=== PATIENT | male | born 1935 | race Caucasian/White ===

== ENCOUNTER 2021-01-15 08:40 | Emergency (ER) | payer MEDICARE, OTHER ==
[~2021-01-15] VITALS: Ht 180.3 cm; Wt 92.3 kg
[2021-01-15] MEDS ORDERED: COMB0.2S (08:56)
[2021-01-15] MEDS ORDERED: METO1TAB7 (08:56)
[2021-01-15] MEDS ORDERED: NATE120T4 (08:56)
[2021-01-15] MEDS ORDERED: BIMA01SOL (08:56)
[2021-01-15] MEDS ORDERED: SITA50TAB (08:56)
[2021-01-15] MEDS ORDERED: ATOR1TAB21 (08:56)
[2021-01-15] MEDS ORDERED: TIMO0.5S29 (08:56)
[2021-01-15] MEDS ORDERED: [UNRECOGNIZED DRUG - CODE] (08:56)
[2021-01-15] MEDS ORDERED: INSULANT (08:56)
[2021-01-15] MEDS ORDERED: ROPI3TAB3 (08:56)
[2021-01-15] MEDS ORDERED: LOSA100T5 (08:56)
[2021-01-15] MEDS ORDERED: OMEP-221 (08:56)
[2021-01-15] MEDS ORDERED: FINA5TAB2 (08:56)
[2021-01-15] MEDS ORDERED: AMLO1TAB25 (08:56)
[2021-01-15] MEDS ORDERED: FREETES (08:56)
[2021-01-15] MEDS ORDERED: LOTE5DRO3 (08:56)
[2021-01-15 09:28] LABS: HEMATOCRIT 36.2 % (42.0-52.0); HEMOGLOBIN 12.1 g/dl (13.5-17.5); MEAN CORPUSCULAR HEMOGLOBIN 35.2 pg (27.0-33.0); MEAN CORPUSCULAR HGB CONC 33.4 g/dl (32.0-36.5); MEAN CORPUSCULAR VOLUME 105.2 fl (80.0-96.0); PLATELET COUNT, AUTOMATED 295 10^3/uL (150-450); RED BLOOD COUNT 3.44 10^6/uL (4.30-6.10)
--- NOTE | 2021-01-15 09:44 | REP ---
INDICATION: llq pain intermittent ro stone COMPARISON: None TECHNIQUE: Axial noncontrast images from the lung bases to the pubic symphysis with coronal and sagittal reformations. This CT examination was performed using the following dose reduction techniques: Automated exposure control, adjustment of mA and/or kv according to the patient's size, and use of iterative reconstruction technique. 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 Visualized heart and pericardium normal. Liver, spleen, pancreas, and bilateral adrenal glands are normal. Cholelithiasis noted without acute cholecystitis. Kidneys demonstrate relatively symmetric moderate chronic perinephric stranding. A 1 mm nonobstructing right renal calculus is identified. There is no hydroureteronephrosis or obstructing ureteral calculi. The enteric system is unremarkable and without obstruction or acute inflammatory process. Normal terminal ileum and cecum identified in the right lower quadrant with findings to suggest prior appendectomy. Pelvis demonstrates enlarged prostate gland with mass effect on the base of the otherwise normal bladder. Atherosclerotic changes to the aorta and vasculature noted without aneurysm. No free air. No ascites. No intraperitoneal or retroperitoneal adenopathy. Musculoskeletal structures demonstrate age-related changes and old healed left rib fracture. IMPRESSION: No acute abdominopelvic pathology appreciated. Cholelithiasis. 1 mm nonobstructing right renal calculus. Mild prostatomegaly. No ascites, focal inflammatory stranding, free air or adenopathy. <Electronically signed by Julio Cesar Rai > 01/15/21 [id number]
[2021-01-15 09:48] LABS: ALBUMIN 3.8 GM/DL (3.2-5.2); BILIRUBIN,DIRECT 0.1 MG/DL (0.0-0.2); BILIRUBIN,TOTAL 0.4 MG/DL (0.2-1.0); TOTAL PROTEIN 7.7 GM/DL (6.4-8.2)
[2021-01-15] MEDS ORDERED: NS 500 ML IV ONE (10:05)
[2021-01-15 10:11] LABS: ATYPICAL LYMPH 1 % (0-5); BASOPHILS 2 % (0-1); EOSINOPHILS 2 % (0-3); LYMPHOCYTES 20 % (16-44); MONOCYTES 4 % (0-5); NEUTROPHILS 70 % (28-66)
[2021-01-15 10:14] LABS: PLATELET ESTIMATE NORMAL (NORMAL)
[2021-01-15] MEDS ORDERED: ISOVUE-370 76% 100ML VIAL As Ordered ONE (10:16)
--- NOTE | 2021-01-15 10:47 | REP ---
INDICATION: llq pqin. COMPARISON: Noncontrast study dated 01/15/2021 TECHNIQUE: Axial contrast-enhanced images from the lung bases to the pubic symphysis using 100 cc Isovue 370 intravenous contrast material. Coronal and sagittal reformations obtained. This CT examination was performed using the following dose reduction techniques: Automated exposure control, adjustment of mA and/or kv according to the patient's size, and the use of iterative reconstruction technique. FINDINGS: Liver demonstrates diffuse fatty infiltration without focal hepatic lesion. Cholelithiasis noted without acute cholecystitis. Spleen, pancreas, bilateral adrenal glands and kidneys are normal. The enteric system including stomach, small, and large bowel appears normal. No evidence for obstruction or acute inflammatory process. Normal terminal ileum and cecum are identified in the right lower quadrant with evidence for prior appendectomy. Pelvis demonstrates prostatomegaly with mass effect on base of the bladder. The bladder itself is otherwise normal in appearance. Descending through rectosigmoid colon appears normal. No ascites. No free air. No intraperitoneal or retroperitoneal adenopathy. Atherosclerotic changes to the aorta and vasculature noted without aneurysm or dissection. Musculoskeletal structures are intact and without acute osseous abnormality. IMPRESSION: No acute abdominopelvic pathology appreciated. Hepatosteatosis. Cholelithiasis. Prostatomegaly. <Electronically signed by Julio Cesar Rai > 01/15/21 [id number]
[2021-01-15 11:12] VITALS: BP 179/79
== END 2021-01-15 11:14 | disposition home or self-care (01) ==
LOC: M ED 08:40
DX: R10.9 Unspecified abdominal pain (principal); E11.65 Type 2 diabetes mellitus with hyperglycemia; I10 Essential (primary) hypertension; E78.9 Disorder of lipoprotein metabolism, unspecified; Z88.0 Allergy status to penicillin; Z79.899 Other long term (current) drug therapy; Z79.4 Long term (current) use of insulin
CPT/HCPCS: 36415; 74176; 74177; 80047; 80076; 81001; 82150; 83605; 83690; 85025; 87040; 93041; 99284; Q9967

== ENCOUNTER 2022-03-12 12:30 | Emergency (ER) | payer BC, MEDICARE, OTHER ==
[~2022-03-12] VITALS: Ht 180.3 cm; Wt 97.7 kg
[~2022-03-12 12:30] MED LIST: AMLO1TAB25; ATOR1TAB21; BIMA01SOL; COMB0.2S; FINA5TAB2; FREETES; INSULANT; LOSA100T5; LOTE5DRO3; METO1TAB7; NATE120T4; OMEP40CA5; ROPI3TAB3; SITA50TAB; TIMO0.5S29; [UNRECOGNIZED DRUG - CODE]
[2022-03-12] MEDS ORDERED: NORCO, ANEXSIA 5/325MG TABLET (HYDROcodone/ACETAMINOPHEN) PO ONE (13:35)
[2022-03-12 15:41] LABS: RSV AMPLIFICATION NEGATIVE (NEGATIVE)
[2022-03-12 15:55] VITALS: BP 160/80
== END 2022-03-12 16:00 | disposition short-term general hospital (02) ==
LOC: EDBD 12:30 → M ED 12:30
DX: S32.021A Stable burst fracture of second lumbar vertebra, initial encounter for closed fracture (principal); S32.019A Unspecified fracture of first lumbar vertebra, initial encounter for closed fracture; V93 Other injury due to accident on board watercraft, without accident to watercraft; J43.9 Emphysema, unspecified; E11.9 Type 2 diabetes mellitus without complications; I10 Essential (primary) hypertension; Z88.0 Allergy status to penicillin; Z79.4 Long term (current) use of insulin; Z79.899 Other long term (current) drug therapy

== ENCOUNTER 2022-03-15 16:14 | Observation (INO) | payer BC, MEDICARE ==
[~2022-03-15] VITALS: Ht 180.3 cm; Wt 91.5 kg
[~2022-03-15 16:14] MED LIST changes: -AMLO1TAB25; +AMLO1TAB25 PO; -FINA5TAB2; +FINA5TAB2 PO; -INSULANT; +INSULANT SC; -NATE120T4; +NATE120T4 PO; -OMEP40CA5; +OMEP40CA5 PO; -ROPI3TAB3; +ROPI3TAB3 PO; -SITA50TAB; +SITA50TAB PO
[2022-03-15] MEDS ORDERED: HYDR-3713 (16:21)
[2022-03-15] MEDS ORDERED: MORPHINE 2 MG/ML 1ML VIAL IV PRN ×2 (17:10→21:20)
[2022-03-15] MEDS ORDERED: ONDANSETRON 4MG 2ML VIAL IV ONE (17:10)
[2022-03-15 17:38] LABS: HEMATOCRIT 32.2 % (42.0-52.0); HEMOGLOBIN 10.8 g/dl (13.5-17.5); MEAN CORPUSCULAR HEMOGLOBIN 35.3 pg (27.0-33.0); MEAN CORPUSCULAR HGB CONC 33.5 g/dl (32.0-36.5); MEAN CORPUSCULAR VOLUME 105.2 fl (80.0-96.0); PLATELET COUNT, AUTOMATED 276 10^3/uL (150-450); RED BLOOD COUNT 3.06 10^6/uL (4.30-6.10); WHITE BLOOD COUNT 7.7 10^3/uL (4.0-10.0)
[2022-03-15 17:58] LABS: ATYPICAL LYMPH 1 % (0-5); BASOPHILS 1 % (0-1); EOSINOPHILS 1 % (0-3); LYMPHOCYTES 12 % (16-44); MONOCYTES 3 % (0-5); NEUTROPHILS 82 % (28-66)
[2022-03-15 17:59] LABS: PLATELET ESTIMATE NORMAL (NORMAL)
[2022-03-15 18:10] LABS: RSV AMPLIFICATION NEGATIVE (NEGATIVE)
[2022-03-15 18:12] LABS: CALCIUM LEVEL 9.8 MG/DL (8.8-10.2); CREATININE FOR GFR 1.85 MG/DL (0.70-1.30); GLOMERULAR FILTRATION RATE 37.2 (>35); POTASSIUM SERUM 4.5 MEQ/L (3.5-5.1)
[2022-03-15 18:13] LABS: ALBUMIN 3.9 GM/DL (3.2-5.2); BILIRUBIN,TOTAL 0.4 MG/DL (0.2-1.0); TOTAL PROTEIN 7.5 GM/DL (6.4-8.2)
[2022-03-15] MEDS ORDERED: HUMA100I5 SC (18:22)
[2022-03-15] MEDS ORDERED: FENO1CAP18 PO (18:22)
[2022-03-15] MEDS ORDERED: MINO100C4 PO (18:22)
[2022-03-15] MEDS ORDERED: ATOR40TA75 PO (18:22)
[2022-03-15] MEDS ORDERED: LOSA25TA13 PO (18:22)
[2022-03-15] MEDS ORDERED: HYDR-3911 PO (18:22)
[2022-03-15] MEDS ORDERED: GLUCOSE 4GM CHEW TABLET PO PRN (19:30)
[2022-03-15] MEDS ORDERED: GLUCAGON INJ 1MG VIAL SC PRN (19:30)
[2022-03-15] MEDS ORDERED: DEXTROSE 50% 50 ML SYRINGE IV PRN (19:30)
[2022-03-15] MEDS ORDERED: ASPI81TA26 PO (19:35)
[2022-03-15] MEDS ORDERED: PRESCAP PO (19:35)
[2022-03-15] MEDS ORDERED: FINE10TA PO (19:35)
[2022-03-15] MEDS ORDERED: B-12100010 PO (19:35)
[2022-03-15] MEDS ORDERED: VITA100093 PO (19:35)
[2022-03-15] MEDS ORDERED: HOME MED LIST COMPLETE! XX SCH (19:40)
[2022-03-15] MEDS: INSULIN LISPRO (NovoLOG) PER UNIT SC SCH (20:40)
[2022-03-15] MEDS ORDERED: LEVEMIR (INSULIN DETEMIR) 1 UNITS/0.01ML SC SCH (21:00)
[2022-03-15] MEDS: **hydrALAZINE** 50 MG TAB PO SCH (21:00)
[2022-03-15] MEDS: ATORVASTATIN 20 MG TAB PO SCH (21:55)
[2022-03-15] MEDS: GABAPENTIN 100 MG CAP PO SCH (21:55)
[2022-03-15] MEDS: LEVEMIR (INSULIN DETEMIR) 1 UNITS/0.01ML SC SCH (21:55)
[2022-03-15] MEDS: NORCO, ANEXSIA 5/325MG TABLET (HYDROcodone/ACETAMINOPHEN) PO PRN (21:56)
[2022-03-15] MEDS: LR 1,000 ML IV SCH (22:01)
[2022-03-16 00:45] VITALS: BP 167/69
[2022-03-16] MEDS: rOPINIRole 1MG TAB PO SCH ×2 (00:58→21:33)
[2022-03-16 05:56] LABS: HEMATOCRIT 30.4 % (42.0-52.0); HEMOGLOBIN 10.2 g/dl (13.5-17.5); MEAN CORPUSCULAR HEMOGLOBIN 35.3 pg (27.0-33.0); MEAN CORPUSCULAR HGB CONC 33.6 g/dl (32.0-36.5); MEAN CORPUSCULAR VOLUME 105.2 fl (80.0-96.0); PLATELET COUNT, AUTOMATED 264 10^3/uL (150-450); RED BLOOD COUNT 2.89 10^6/uL (4.30-6.10); WHITE BLOOD COUNT 6.1 10^3/uL (4.0-10.0)
[2022-03-16 06:00] VITALS: BP 161/66
[2022-03-16] MEDS: HEPARIN SOD (PORCINE) 5000UNITS/ML 1ML VIAL/SYRINGE SC SCH ×3 (06:39→21:32)
[2022-03-16 06:40] LABS: CALCIUM LEVEL 9.7 MG/DL (8.8-10.2); CREATININE FOR GFR 1.7 MG/DL (0.70-1.30); POTASSIUM SERUM 4.6 MEQ/L (3.5-5.1)
[2022-03-16] MEDS: NORCO, ANEXSIA 5/325MG TABLET (HYDROcodone/ACETAMINOPHEN) PO PRN ×2 (06:48→17:16)
[2022-03-16] MEDS ORDERED: SITagliptin 50 MG TAB (JANUVIA) PO SCH (09:00)
[2022-03-16] MEDS: GABAPENTIN 100 MG CAP PO SCH ×3 (09:30→21:31)
[2022-03-16] MEDS: INSULIN LISPRO (NovoLOG) PER UNIT SC SCH ×4 (09:30→21:00)
[2022-03-16] MEDS: OMEPRAZOLE 20MG CAP PO SCH (09:31)
[2022-03-16] MEDS: FINASTERIDE 5MG TAB PO SCH (09:31)
[2022-03-16] MEDS: LOSARTAN 25 MG TAB PO SCH (09:31)
[2022-03-16] MEDS: ASPIRIN 81MG ENTERIC TABLET PO SCH (09:31)
[2022-03-16] MEDS: **hydrALAZINE** 50 MG TAB PO SCH ×3 (09:32→21:33)
[2022-03-16] MEDS: LR 1,000 ML IV SCH (09:33)
[2022-03-16 10:30] LABS: FOLATE 8.8 NG/ML
[2022-03-16 14:00] VITALS: BP 134/53
[2022-03-16] MEDS: ACETAMINOPHEN 500 MG TAB PO SCH ×2 (14:34→21:32)
[2022-03-16] MEDS: NICOTINE 14 MG/24 HR TRANSDERMAL TD SCH (17:17)
[2022-03-16] MEDS ORDERED: LEVEMIR (INSULIN DETEMIR) 1 UNITS/0.01ML SC SCH (21:00)
[2022-03-16] MEDS: LEVEMIR (INSULIN DETEMIR) 1 UNITS/0.01ML SC SCH (21:31)
[2022-03-16] MEDS: ATORVASTATIN 20 MG TAB PO SCH (21:31)
[2022-03-16 21:33] VITALS: BP 137/49
[2022-03-16 22:00] VITALS: BP 137/49
[2022-03-16] MEDS ORDERED: NORCO, ANEXSIA 5/325MG TABLET (HYDROcodone/ACETAMINOPHEN) PO ONE (22:45)
[2022-03-16] MEDS ORDERED: NORCO, ANEXSIA 5/325MG TABLET (HYDROcodone/ACETAMINOPHEN) PO PRN (22:45)
[2022-03-17] MEDS: ACETAMINOPHEN 500 MG TAB PO SCH ×2 (05:49→13:31)
[2022-03-17] MEDS: HEPARIN SOD (PORCINE) 5000UNITS/ML 1ML VIAL/SYRINGE SC SCH ×2 (05:49→13:31)
[2022-03-17 05:58] VITALS: BP 146/62
[2022-03-17] MEDS: NICOTINE 14 MG/24 HR TRANSDERMAL TD SCH (09:24)
[2022-03-17] MEDS: INSULIN LISPRO (NovoLOG) PER UNIT SC SCH ×2 (09:24→13:31)
[2022-03-17] MEDS: OMEPRAZOLE 20MG CAP PO SCH (09:25)
[2022-03-17] MEDS: ASPIRIN 81MG ENTERIC TABLET PO SCH (09:25)
[2022-03-17] MEDS: GABAPENTIN 100 MG CAP PO SCH (09:25)
[2022-03-17] MEDS: FINASTERIDE 5MG TAB PO SCH (09:25)
[2022-03-17] MEDS: **hydrALAZINE** 50 MG TAB PO SCH (09:26)
[2022-03-17] MEDS: LOSARTAN 25 MG TAB PO SCH (09:26)
[2022-03-17] MEDS ORDERED: INSULANT SC (13:03)
[2022-03-17] MEDS ORDERED: GABA-282 PO (13:03)
== END 2022-03-17 14:50 | disposition home or self-care (01) ==
LOC: M ED 16:14 → INTOOBSV 16:15 → M ED INP 16:15 → UNDOADMIN 17:47 → M ED INP 17:47 → ENRESERV 22:37 → M MSPAV 03-16 00:45 → M ED INP 03-16 00:45 → UNDODISIN 03-17 14:50
PROVIDERS: ADMIT Internal Medicine; ATTEND Internal Medicine
DX: S32.022A Unstable burst fracture of second lumbar vertebra, initial encounter for closed fracture (principal); R52 Pain, unspecified; N18.9 Chronic kidney disease, unspecified; I12.9 Hypertensive chronic kidney disease with stage 1 through stage 4 chronic kidney disease, or unspecified chronic kidney disease; E11.21 Type 2 diabetes mellitus with diabetic nephropathy; K21.9 Gastro-esophageal reflux disease without esophagitis; N40.0 Benign prostatic hyperplasia without lower urinary tract symptoms; G25.81 Restless legs syndrome; E78.49 Other hyperlipidemia; Z87.891 Personal history of nicotine dependence; Z79.82 Long term (current) use of aspirin; Z79.899 Other long term (current) drug therapy; Z79.4 Long term (current) use of insulin; Z88.0 Allergy status to penicillin
CPT/HCPCS: 36415; 80048; 80053; 82607; 82746; 85025; 85027; 87631; 96361; 96372; 96374; 96375; 96376; 97110; 97162; 97165; 97530; 97535; 99285; J1644; J1815; J2270; J2405

== ENCOUNTER 2025-04-19 06:35 | Inpatient (IN) | payer MEDICARE ==
[~2025-04-19] VITALS: Ht 180.3 cm; Wt 89.9 kg
[~2025-04-19 06:35] MED LIST changes: +ASPI81TA26 PO; +ATOR40TA75 PO; +B-12100010 PO; +FENO1CAP18 PO; +FINE10TA PO; +GABA-1172 PO; +HUMA100I5 SC; +HYDR-3713; +HYDR50TA46 PO; +LOSA25TA13 PO; -LOTE5DRO3; +LOTE5DRO9; +MINO100C4 PO; +PRESCAP PO; +ROPI3TAB18 PO; -ROPI3TAB3 PO; +TIMO0.5S20; -TIMO0.5S29; +VITA100093 PO
[2025-04-19] MEDS ORDERED: LANTINJ4 SC (06:57)
[2025-04-19] MEDS ORDERED: CHLO125TA PO (07:00)
[2025-04-19] MEDS ORDERED: INSUHUMDS SC (07:00)
[2025-04-19] MEDS ORDERED: CLOP75TA2 PO (07:00)
[2025-04-19] MEDS ORDERED: VANCOMYCIN HCL 1,750 MG, VIAL MATE ADAPTER 1 EACH in NS 500 ML IV ONE ×2 (08:00→08:15)
[2025-04-19 08:14] LABS: PLATELET COUNT, AUTOMATED 293 10^3/uL (150-450)
[2025-04-19] MEDS ORDERED: metroNIDAZOLE 500 MG in IV 1 EA IV ONE ×2 (08:15→11:00)
[2025-04-19 08:17] LABS: INR 0.98
[2025-04-19 08:20] LABS: ERYTHROCYTE SEDIMENTATION RATE 12 mm/hr (0-20)
[2025-04-19 08:26] LABS: ALT/SGPT 20 U/L (7.0-40); AST/SGOT 20 U/L (<34); C REACTIVE PROTEIN QUANTITATIV < 0.50 MG/DL (<1.0); CALCIUM LEVEL 9.3 MG/DL (8.3-10.6); CARBON DIOXIDE LEVEL 25 MMOL/L (20-31); CHLORIDE LEVEL 104 MMOL/L (98-107); CREATININE FOR GFR 1.39 MG/DL (0.70-1.30); GLOMERULAR FILTRATION RATE 48.8 (>35); POTASSIUM SERUM 4.2 MMOL/L (3.5-5.1); SODIUM LEVEL 136 MMOL/L (136-145)
[2025-04-19] MEDS: CEFEPIME HCL 2 GM in DEXTROSE 5% (D5W) ADV/MINI-BAG 50 ML IV ONE (08:36)
[2025-04-19 08:39] LABS: ATYPICAL LYMPH 1 % (0-5); BASOPHILS 2 % (0-1); LYMPHOCYTES 17 % (16-44); MONOCYTES 2 % (0-5); NEUTROPHILS 78 % (28-66)
[2025-04-19 08:40] LABS: PLATELET CLUMPS SMALL AMT; PLATELET ESTIMATE NORMAL (NORMAL)
[2025-04-19] MEDS: NS (Normal Saline) 0.9% 1,000 ML IV ONE (09:23)
[2025-04-19] MEDS ORDERED: DEXTROSE 50% 50 ML SYRINGE IV PRN (09:45)
[2025-04-19] MEDS ORDERED: GLUCOSE 4 GM CHEW PO PRN (09:45)
[2025-04-19] MEDS ORDERED: MOM 30 ML SUSPENSION UDC PO PRN (09:45)
[2025-04-19] MEDS ORDERED: GLUCAGON INJ 1 MG VIAL SC PRN (09:45)
[2025-04-19] MEDS ORDERED: VANCOMYCIN HCL 1,000 MG, VIAL MATE ADAPTER 1 EACH in NS 250 ML IV SCH (09:45)
[2025-04-19] MEDS ORDERED: ACETAMINOPHEN 325 MG TAB PO PRN (09:45)
[2025-04-19] MEDS ORDERED: MAALOX 30 ML SUSP *UDC PO PRN (09:45)
[2025-04-19 09:47] LABS: ESTIMATED AVERAGE GLUCOSE 146.0 MG/DL (60-110)
[2025-04-19] MEDS: VANCOMYCIN HCL 1,750 MG, VIAL MATE ADAPTER 1 EACH in NS 500 ML IV ONE (10:45)
[2025-04-19 11:29] LABS: ESTIMATED AVERAGE GLUCOSE 148.0 MG/DL (60-110)
[2025-04-19 13:30] VITALS: BP 141/68; TEMP 97.7; O2SAT 96
[2025-04-19] MEDS ORDERED: PRESCAP PO (14:16)
[2025-04-19] MEDS ORDERED: HYDR100T PO (14:16)
[2025-04-19] MEDS ORDERED: ALLO10TA PO (14:22)
[2025-04-19] MEDS ORDERED: HOME MED LIST COMPLETE! XX SCH (14:25)
[2025-04-19] MEDS: NS (Normal Saline) 0.9% 1,000 ML IV SCH (14:28)
[2025-04-19] MEDS: metroNIDAZOLE 500 MG in IV 1 EA IV SCH (14:28)
[2025-04-19] MEDS: INSULIN LISPRO (NovoLOG) PER UNIT SC SCH ×2 (14:29→20:30)
[2025-04-19] MEDS ORDERED: PILL CUTTER 1 EACH XX PRN (15:50)
[2025-04-19] MEDS: **hydrALAZINE** 50 MG TAB PO SCH (16:00)
[2025-04-19] MEDS: ASPIRIN 81 MG ENTERIC TABLET PO SCH (17:10)
[2025-04-19] MEDS: FENOFIBRATE 145 MG TABLET PO SCH (17:11)
[2025-04-19] MEDS: PANTOPRAZOLE 40MG TAB PO SCH (17:11)
[2025-04-19] MEDS: FINASTERIDE 5 MG TAB PO SCH (17:11)
[2025-04-19] MEDS: CLOPIDOGREL 75 MG TAB PO SCH (17:11)
[2025-04-19] MEDS: CHLORTHALIDONE 25 MG TAB PO SCH (17:14)
[2025-04-19] MEDS: amLODIPine 10 MG TAB PO SCH (17:14)
[2025-04-19 19:59] VITALS: BP 155/62; TEMP 98.1; O2SAT 96
[2025-04-19] MEDS: CEFEPIME HCL 2 GM in DEXTROSE 5% (D5W) ADV/MINI-BAG 50 ML IV SCH (20:28)
[2025-04-19] MEDS: LanTUS (INSULIN GLARGINE INJ) 1 UNITS/0.01 ML SC SCH (20:30)
[2025-04-19] MEDS: HEPARIN SOD 5000 UNITS/ML 1 ML VIAL/SYRINGE SC SCH (20:31)
[2025-04-19] MEDS: DOCUSATE SODIUM 100 MG CAPSULE PO SCH (20:31)
[2025-04-19] MEDS: ATORVASTATIN 20 MG TAB PO SCH (20:31)
[2025-04-19] MEDS: VANCOMYCIN HCL 1,000 MG, VIAL MATE ADAPTER 1 EACH in NS 250 ML IV SCH (21:27)
[2025-04-20 05:11] VITALS: BP 136/53; TEMP 97.7; O2SAT 96
[2025-04-20 06:33] LABS: BASO # 0.0 10^3/uL (0.0-0.2); BASO % 0.3 % (0.0-1.0); EOS # 0.1 10^3/uL (0.0-0.5); EOS % 2.2 % (0.0-3.0); LYMPH # 1.7 10^3/uL (1.5-5.0); LYMPH % 26.6 % (24.0-44.0); MONO # 0.4 10^3/uL (0.0-0.8); MONO % 6.7 % (2.0-8.0); NEUTROPHILS # 4.1 10^3/uL (1.5-8.5); NEUTROPHILS % 63.7 % (36.0-66.0); PLATELET COUNT, AUTOMATED 260 10^3/uL (150-450)
[2025-04-20 07:00] LABS: C REACTIVE PROTEIN QUANTITATIV 1.23 MG/DL (<1.0)
[2025-04-20 07:01] LABS: CALCIUM LEVEL 8.7 MG/DL (8.3-10.6); CARBON DIOXIDE LEVEL 27.0 MMOL/L (20-31); CHLORIDE LEVEL 104.0 MMOL/L (98-107); CREATININE FOR GFR 1.34 MG/DL (0.70-1.30); GLOMERULAR FILTRATION RATE 51.0 (>35); MAGNESIUM LEVEL 1.6 MG/DL (1.8-2.4); POTASSIUM SERUM 4.1 MMOL/L (3.5-5.1); SODIUM LEVEL 139.0 MMOL/L (136-145)
[2025-04-20] MEDS: CYANOCOBALAMIN 500 MCG TAB PO SCH (08:36)
[2025-04-20] MEDS: MAGNESIUM OXIDE 400 MG TAB PO ONE (08:56)
[2025-04-20] MEDS: VITAMIN D 1,000 INTERNATIONAL UNITS TABLET PO SCH (08:56)
[2025-04-20] MEDS: MUPIROCIN 2% OINT 22 GM TUBE TOP SCH (09:00)
[2025-04-20] MEDS: VANCOMYCIN HCL 1,000 MG, VIAL MATE ADAPTER 1 EACH in NS 250 ML IV SCH (13:49)
[2025-04-20 14:00] VITALS: BP 169/56; TEMP 98.6; O2SAT 95
[2025-04-20 20:31] VITALS: BP 172/65; TEMP 97.7; O2SAT 96
[2025-04-21 05:42] VITALS: BP 154/56; TEMP 97.7; O2SAT 96
[2025-04-21 06:23] LABS: BASO # 0.0 10^3/uL (0.0-0.2); BASO % 0.3 % (0.0-1.0); EOS # 0.1 10^3/uL (0.0-0.5); EOS % 1.8 % (0.0-3.0); LYMPH # 1.2 10^3/uL (1.5-5.0); LYMPH % 19.5 % (24.0-44.0); MONO # 0.5 10^3/uL (0.0-0.8); MONO % 7.7 % (2.0-8.0); NEUTROPHILS # 4.4 10^3/uL (1.5-8.5); NEUTROPHILS % 70.2 % (36.0-66.0); PLATELET COUNT, AUTOMATED 233 10^3/uL (150-450)
[2025-04-21 06:46] LABS: C REACTIVE PROTEIN QUANTITATIV 1.57 MG/DL (<1.0)
[2025-04-21 06:47] LABS: CALCIUM LEVEL 8.8 MG/DL (8.3-10.6); CARBON DIOXIDE LEVEL 27.0 MMOL/L (20-31); CHLORIDE LEVEL 105.0 MMOL/L (98-107); CREATININE FOR GFR 1.39 MG/DL (0.70-1.30); GLOMERULAR FILTRATION RATE 48.8 (>35); MAGNESIUM LEVEL 1.7 MG/DL (1.8-2.4); POTASSIUM SERUM 4.1 MMOL/L (3.5-5.1); SODIUM LEVEL 142.0 MMOL/L (136-145)
[2025-04-21] MEDS: MAGNESIUM OXIDE 400 MG TAB PO SCH (08:18)
[2025-04-21] MEDS ORDERED: MEROPENEM 2 GM in SODIUM CHLORIDE 0.9% INJ 100 ML IV SCH (11:55)
[2025-04-21] MEDS ORDERED: ENOXAPARIN 100 MG/1 ML SYRINGE (J1650 PER 10MG) SC SCH (12:00)
[2025-04-21 14:00] VITALS: BP 180/56; TEMP 98.1; O2SAT 98
[2025-04-21] MEDS ORDERED: ZYVO1TAB PO (14:05)
[2025-04-21] MEDS: HEPARIN SOD 5000 UNITS/ML 1 ML VIAL/SYRINGE SQ SCH (15:05)
[2025-04-21 18:24] VITALS: BP 144/50
[2025-04-21 20:49] VITALS: BP 154/61; TEMP 98.8; O2SAT 91
[2025-04-21] MEDS ORDERED: LanTUS (INSULIN GLARGINE INJ) 1 UNITS/0.01 ML SC SCH (21:00)
[2025-04-21] MEDS: LINEZOLID 600 MG TABLET PO SCH (21:08)
[2025-04-21] MEDS: PANTOPRAZOLE 40MG TAB PO SCH (21:10)
[2025-04-22 06:25] VITALS: BP 163/123; TEMP 98.4; O2SAT 95
[2025-04-22 06:36] LABS: BASO # 0.0 10^3/uL (0.0-0.2); BASO % 0.3 % (0.0-1.0); EOS # 0.1 10^3/uL (0.0-0.5); EOS % 2.3 % (0.0-3.0); LYMPH # 1.3 10^3/uL (1.5-5.0); LYMPH % 21.9 % (24.0-44.0); MONO # 0.4 10^3/uL (0.0-0.8); MONO % 7.2 % (2.0-8.0); NEUTROPHILS # 4.1 10^3/uL (1.5-8.5); NEUTROPHILS % 67.8 % (36.0-66.0); PLATELET COUNT, AUTOMATED 243 10^3/uL (150-450)
[2025-04-22 07:11] LABS: C REACTIVE PROTEIN QUANTITATIV 1.8 MG/DL (<1.0)
[2025-04-22 07:12] LABS: CALCIUM LEVEL 9.0 MG/DL (8.3-10.6); CARBON DIOXIDE LEVEL 29.0 MMOL/L (20-31); CHLORIDE LEVEL 102.0 MMOL/L (98-107); CREATININE FOR GFR 1.41 MG/DL (0.70-1.30); GLOMERULAR FILTRATION RATE 47.9 (>35); MAGNESIUM LEVEL 1.7 MG/DL (1.8-2.4); POTASSIUM SERUM 4.2 MMOL/L (3.5-5.1); SODIUM LEVEL 139.0 MMOL/L (136-145)
[2025-04-22 08:14] VITALS: BP 172/60
[2025-04-22 08:15] VITALS: BP 172/60
[2025-04-22] MEDS: MAGNESIUM OXIDE 400 MG TAB PO SCH (08:15)
[2025-04-22] MEDS: ASPIRIN 81 MG ENTERIC TABLET PO SCH (08:16)
[2025-04-22] MEDS ORDERED: MAG-400T7 PO (11:22)
== END 2025-04-22 14:40 | disposition home health service (06) | DRG 301 ==
LOC: M ED 06:35 → EEVIPCON 09:45 → M ED INP 09:45 → M MS5PR 13:12
PROVIDERS: ADMIT Internal Medicine; ATTEND Student in an Organized Health Care Education/Training Program
DX: E11.52 Type 2 diabetes mellitus with diabetic peripheral angiopathy with gangrene (principal); E11.621 Type 2 diabetes mellitus with foot ulcer; L97.519 Non-pressure chronic ulcer of other part of right foot with unspecified severity; E11.40 Type 2 diabetes mellitus with diabetic neuropathy, unspecified; N18.30 Chronic kidney disease, stage 3 unspecified; I12.9 Hypertensive chronic kidney disease with stage 1 through stage 4 chronic kidney disease, or unspecified chronic kidney disease; E11.22 Type 2 diabetes mellitus with diabetic chronic kidney disease; N40.0 Benign prostatic hyperplasia without lower urinary tract symptoms; K21.9 Gastro-esophageal reflux disease without esophagitis; Z96.653 Presence of artificial knee joint, bilateral; E83.42 Hypomagnesemia; I25.10 Atherosclerotic heart disease of native coronary artery without angina pectoris; G25.81 Restless legs syndrome; E11.319 Type 2 diabetes mellitus with unspecified diabetic retinopathy without macular edema; Z88.0 Allergy status to penicillin; Z88.8 Allergy status to other drugs, medicaments and biological substances; Z79.899 Other long term (current) drug therapy; Z79.82 Long term (current) use of aspirin; Z79.4 Long term (current) use of insulin